=== PATIENT | male | born 1980 | race Caucasian/White ===

== ENCOUNTER 2025-08-06 11:49 | Outpatient (CLI) | payer OTHER, SELFPAY ==
[2025-08-06 10:24] LABS: Abs Immature Grans 0.02 10^3/uL (0.0-0.06); HCT 46.4 % (40.0-50.0); HGB 15.9 g/dL (13.5-17.5); Immature Grans % 0.3 %; MCH 29.0 pg (27.0-33.0); MCHC 34.3 % (32.0-36.0); MCV 85 fL (80-95); MPV 9.5 fL (8.0-11.0); Platelet Count 226 10^3/uL (130-400); RBC 5.48 10^6/uL (4.36-5.78); RDW 11.9 % (11.8-14.1); RDW-SD 36.5 fL; WBC 6.84 10^3/uL (4.4-10.8)
[2025-08-06 10:25] LABS: ESR 14 mm/hr (0-15)
[2025-08-06 11:04] LABS: C-Reactive Protein 0.53 mg/dL (<or=0.5); Uric Acid 5.8 mg/dL (3.5-7.2)
[2025-08-07 12:12] LABS: Lyme Ab w Rflx to Lyme Confirm Negative (Negative)
[2025-08-08 22:37] LABS: B. miyamotoi PCR Negative (Negative); Babesia divergens/MO-1 Negative (Negative); Ehrlichia muris eauclairensis Negative (Negative)
== END 2025-08-06 11:50 | disposition home or self-care (01) ==
LOC: LBO 11:49
PROVIDERS: PCP Nurse Practitioner; Visit Provider Student in an Organized Health Care Education/Training Program
DX: M11.261 Other chondrocalcinosis, right knee (principal)
CPT/HCPCS: 36415; 85652; 87798; 84550; 85025; 86140; 86618

== ENCOUNTER 2025-09-02 02:19 | Outpatient (CLI) | payer OTHER, SELFPAY ==
--- NOTE | 2025-09-02 09:45 | DI.MRI_ITS ---
Exam(s) MR LOWER JOINT RT WO EXAM: MR LOWER JOINT RT WO CLINICAL HISTORY: PAIN RT KNEE M25.561 EFFUSION RT KNEE M25.461 R/O BONE DEFORMITY/TEAR. TECHNIQUE: Multiplanar multisequence MRI was performed. COMPARISON: CR XR KNEE 3 VIEW RIGHT from 07/19/2025 FINDINGS: BONES: There is no fracture or contusion pattern. JOINTS: There is thinning of the articular cartilage over the lateral aspect of the medial femoral condyle. There is also mild thinning of the articular cartilage overlying the mid patella. There is a small joint effusion. TENDONS: Extensor mechanism: Unremarkable. Medial retinaculum: Unremarkable. Lateral retinaculum: Unremarkable. Popliteus: Unremarkable. MUSCLES: Unremarkable. MENISCI: The medial meniscus is unremarkable. There is intermediate signal seen in the body and posterior horn of the lateral meniscus. It does appear to contact the articular surface in the posterior horn suspicious for tear. SOFT TISSUES: There are venous varicosities present. LIGAMENTS: Anterior Cruciate: Unremarkable. Posterior Cruciate: Unremarkable. Medial Collateral:Unremarkable. Lateral Collateral: Unremarkable. OTHER: There is a small popliteal cyst present. IMPRESSION: 1. Findings suspicious for tear versus degeneration of the posterior horn of the lateral meniscus. 2. There is no evidence of a ligament tear. 3. 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 4. Small joint effusion. 5. Small popliteal cyst. 6. Venous varicosities. DATA REPOSITORY:
== END 2025-09-02 02:39 ==
LOC: DI 02:19
PROVIDERS: PCP Nurse Practitioner; Visit Provider Nurse Practitioner
DX: M25.561 Pain in right knee (principal); M25.461 Effusion, right knee
CPT/HCPCS: 73721